=== PATIENT | male | born 1930 | race Caucasian/White ===

== ENCOUNTER 2017-02-13 12:20 | Observation (INO) | payer OTHER ==
[~2017-02-13] VITALS: Ht 170.2 cm; Wt 64.5 kg
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
--- NOTE | ~2017-02-13 | CR72 ---
[facility] A Service of [facility] RADIOLOGY TEXT RESULTS PATIENT: SHAHRZAD TOBIN LOCATION: A 240-01 : 30 UNIT #: [id number] AGE: [address]: Burak Crocker MD SEX: M ORDER DR: [id number] [facility] [address] [place], [place] [address] [id number] I MR#: [id number] Acc #: [id number] NAME: SHAHRZAD TOBIN : 1930 SEX: M STUDY DATE/TIME: 02/25/2017 13:19 UNIT: [facility] ROOM: [facility] STUDY DESCRIPTION: CR Chest Single View Portable Attending Physician: Burak Crocker M.D. Ordering Physician: Suze Perez M.D. Primary Care Physician: Primary Care Physician No MEDICAL IMAGING REPORT This report is preliminary unless electronic signature is present EXAM Chest x-ray single-view portable HISTORY Cough for 1 month with congestion. COMMENT Single frontal portable view of the chest timed 13:19 on 02/25/2017 compared to 02/13/2017. Cardiac silhouette size is normal. There is a moderate-sized hiatal hernia. There is left-sided pacer/defibrillator and a stent right upper extremity to subclavian level. There is evidence for old granulomatous disease. There is some distortion of pulmonary parenchymal architecture which is chronic. There is no acute infiltrate. There is no acute congestive failure. No pleural effusion. IMPRESSION No significant interval change in the appearance of the chest since 02/13/2017. Likely chronic lung changes but no acute infiltrate or acute congestive failure. The patient has a left-sided pacer/defibrillator, right-sided stents. Also redemonstrated is a moderate hiatal hernia. Dictated by... Tamia Barbosa M.D. THIS IS AN ELECTRONICALLY VERIFIED REPORT Tamia Barbosa M.D. at 02/26/2017 4:54 PM [facility]/s [facility] A Service of [facility] RADIOLOGY TEXT RESULTS PATIENT: SHAHRZAD TOBIN [id number] : [facility] UNIT #: [id number] AGE: [address]: Burak Crocker MD SEX: M ORDER DR: TD: 02/26/2017 06:11 JOB #: [id number] MEDICAL IMAGING REPORT Page 1 of 1 COPY
--- NOTE | ~2017-02-13 | DS ---
Unit #: [id number] #: [id number] Patient: SHAHRZAD TOBIN [id number] [address] [address] [id number] I MR#: [id number] NAME: SHAHRZAD TOBIN ROOM: 240 Age: 86 Sex: M Admission Date: 02/13/2017 : 1930 Discharge Date: 03/09/2017 Attending Physician: Burak Crocker M.D. Primary Care Physician: No Primary Care Physician DISCHARGE SUMMARY ADDENDUM REASON FOR ADMISSION Please see H and P. HOSPITAL COURSE Please see discharge summary I dictated several days prior for initial part of hospital course. Essentially the patient through hospital course began declining. Overall his shortness of breath and/or dyspnea worsened. Repeat 2D echocardiogram was performed showing a diminished ejection fraction of approximately 10%, decreased from a prior ejection fraction of 30% in January 2017. Consultation was placed at that point in time to cardiology services and secondary to patient's persistent hypotension, no further management was recommended and cardiology services recommended comfort measures only. His prognosis appeared to be poor and he was actively dying. Subsequently a phone call was placed to patient's son. All care was reviewed with him in detail. A decision was made for DNR status, as well as for Hospice consultation. Hospice saw and evaluated patient. All parties were in agreement. Patient will be [facility] for ongoing care. Overall his prognosis is poor. FINAL DISCHARGE DIAGNOSES 1. Acute on chronic systolic heart failure with ejection fraction 10%. 2. Dyspnea multifactorial. 3. End stage renal disease on hemodialysis. 4. End stage dementia. 5. Moderate to severe protein/calorie malnutrition. Dictated by... Sandra Díaz/trung TD: 03/13/2017 08:45 JOB #: [id number] Unit #: [id number] #: [id number] Patient: SHAHRZAD TOBIN DISCHARGE SUMMARY Page 1 of 1 X Burak Crocker MD X DISCHARGE SUMMARY
--- NOTE | ~2017-02-13 | EKG ---
PATIENT: STEFAN HEREDIA UNIT #: [id number] Ventricular Rate: 88 BPM Atrial Rate: 88 BPM P-R Interval: 176 ms QRS Duration: 180 ms Q-T Interval: 490 ms QTC Calculation(Bezet): 592 ms P [place]: 15 degrees Calculated R [place]: -74 degrees Calculated T [place]: 104 degrees Diagnosis Line: Atrial-sensed ventricular-paced rhythm Diagnosis Line: Biventricular pacemaker detected Diagnosis Line: Abnormal ECG Diagnosis Line: No previous ECGs available Diagnosis Line: Confirmed by FRANCISCO BENDER MD ([id number]) on 02/14/2017 Diagnosis Line: 7:38:23 PM INTERPRETING MD: YULIA THURSTON
--- NOTE | ~2017-02-13 | EKG ---
PATIENT: SHAHRZAD TOBIN UNIT #: [id number] Ventricular Rate: 95 BPM Atrial Rate: 95 BPM P-R Interval: 146 ms QRS Duration: 190 ms Q-T Interval: 416 ms QTC Calculation(Bezet): 522 ms P [place]: 76 degrees Calculated R [place]: -70 degrees Calculated T [place]: 103 degrees Diagnosis Line: Electronic ventricular pacemaker Diagnosis Line: Diagnosis Line: Confirmed by FRANCISCO BENDER MD ([id number]) on 03/08/2017 Diagnosis Line: 10:23:30 PM INTERPRETING MD: YULIA THURSTON
--- NOTE | ~2017-02-13 | FU ---
[facility] Nutrition Therapy DATE: 03/07/17 Patient: SHAHRZAD TOBIN Physician: NAUN Address: [address] [place] [address] Room/Bed: [address] [place] [address], Zip: [place] [address] Admit Date: 02/13/17 Date of : 30 Height: 5 7 Weight: 144 65.5 NUTRITION MONITORING/FOLLOW-UP: Reason: PT SEEN FOR FOLLOW-UP DX: ESRD Anthropometrics: 5'7", WT: 144# (65 KG), BMI: 22.6 -ADMIT WEIGHT: 125# (56.8 KG) Labs: CREAT: 3.0, GFR: 18.0 Meds: NOVOLOG, ZOFRAN, FERROUS GLUCONATE, LIPITOR, NACL I&O's: 370/400 Skin: DRY SKIN NOTED Assessment: CHART REVIEWED AND EVENTS NOTED. PT SEEN FOR FOLLOW-UP. PT CONSUMING BREAKFAST AT TIME OF VISIT-NOTING PT ATE ~75% OF MEAL SO FAR. PT NOTED TO HAVE A SAD, FLAT AFFECT REORTING GOOD PO INTAKE AND APPETITE, NO C/O N/V/D. PT REPORTS CONSUMING ENSURE PUDDING BID. THIS RD ENCOURAGED ADEQUATE KCAL AND PROTEIN INTAKE, PT AGREED. PT REPORTED NO DIET QUESTIONS AT THIS VISIT. PER CHART, AWAITING PLACEMENT FOR D/C. Dx: INADEQUATE PROTEIN-ENERGY INTAKE R/T DECREASED APPETITE, ADVANCED AGE, CURRENT CONDITION AEB PT REPORT ABOVE, LOW BMI/%IBW, WEIGHT LOSS NOTED PER PT.-ACTIVE Intervention: 1. CC+HH+ 2 GM NA + FLUID RESTRICTION DIET 2. ENSURE PUDDING BID Monitoring, Evaluation and Goals: 1. ORAL INTAKE; CONSUME/TOLERATE >50% OF MEALS AND SUPPLEMENTS-MET 2. WEIGHTS; PREVENT FURTHER WEIGHT LOSS-MET/IN PROGRESS 3. LABS; WNL: BUN, CREAT, PHOS-IN PROGRESS/MET Recommendations: 1. CONTINUE TO ENCOURAGE ADEQUATE PO AND SUPPLEMENT INTAKE 2. CONSIDER OBTAINING UPDATED PHOS LEVEL (LAST ONE WAS 02/13/17) RD WILL F/U PER PROTOCOL PT IS MILDLY COMPROMISED Respectfully, ANUSHA MURRAY MS, RD, LD [facility] Nutrition Therapy DATE: 03/07/17 Patient: SHAHRZAD TOBIN Physician: NAUN Address: [address] Room/Bed: [address] [place] [address], Zip: [place] [address] Admit Date: 02/13/17 Date of : 30 Height: 5 7 Weight: 144 65.5 [facility] cc: client file
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
--- NOTE | ~2017-02-13 | CO ---
Unit #: [id number] #: [id number] Patient: SHAHRZAD TOBIN [id number] [address] [place], [place] [address] [id number] I MR#: [id number] NAME: SHAHRZAD TOBIN ROOM: 240 Age: 86 Sex: M Admission Date: 02/13/2017 : 1930 Attending Physician: Burak Crocker M.D. Consultation Date: 03/02/2017 CONSULTATION REPORT REASON FOR CONSULTATION Followup. DISCUSSION Mr. Ray is an 86-year-old white male, seen in room 240, bed 1 on 03/02/2017. The patient interviewed, chart reviewed, and obtained information from nursing staff. The patient lying comfortably in bed. Able to answer question in short sentences. The patient still eating poorly. Withdrawn, isolative, flat affect, guarded, poor historian. No agitation. The patient is currently compliant with medication. No side effects from medication. On Aricept, haloperidol, Risperdal. No side effects from medication. Vital signs; temperature 97.5, pulse 90, respirations 18, blood pressure 115/54, oxygen saturation 96%. REVIEW OF SYSTEMS Complete review of systems unremarkable. MENTAL STATUS EXAMINATION General appearance, the patient dressed casually, thin built, withdrawn, isolative, poor eye contact. Attention span and concentration, poor. Speech, slow in volume and rate. Oriented in self and place. Mood and affect, labile and flat. Thought process, circumstantial. Thought content, guarded, paranoid, but denied any thoughts of harming self or others. Recent and remote memory, fair to poor. Language, fair. Fund of knowledge, fair. Insight and judgment, fair to slightly impaired. 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 ASSESSMENT/PLAN 1. Supportive psychotherapy and psychoeducation provided to the patient. 2. Educated about benefits and side effects of medication and course and prognosis of illness. 3. Advised to continue with current combination of medication and make further adjustment of medication if needed. Please feel free to call if any questions, telephone #[phone]. Dictated by... Kevin Che M.D. GAUTAM/bobbi Unit #: [id number] #: [id number] Patient: SHAHRZAD TOBIN TD: 03/03/2017 14:48 JOB #: [id number] CONSULTATION REPORT Page 1 of 1 X Kevin Che MD CONSULTATION REPORT
--- NOTE | ~2017-02-13 | CO ---
Unit #: [id number] #: [id number] Patient: SHAHRZAD TOBIN [id number] [facility] [address] [facility]. [place], [place] [address] [id number] I MR#: [id number] NAME: SHAHRZAD TOBIN ROOM: 240 Age: 86 Sex: M Admission Date: 02/13/2017 : 1930 Attending Physician: Burak Crocker M.D. Primary Care Physician: Primary Care Physician No Consultation Date: 03/06/2017 CONSULTATION REPORT REASON FOR CONSULTATION Followup. DISCUSSION Mr. Ray is an 86-year-old male, seen in room 240, bed 1, on 03/06/2017 at [facility]. The patient was lying comfortably. Answered question in short sentences. Confused, guarded, poor memory. Vital signs; temperature 97.9, pulse 85, respirations 16, blood pressure 116/42, oxygen saturation 94%. The patient has poor intake, withdrawn, guarded, paranoid. medical social worker is currently looking for placement such as [employer]. REVIEW OF SYSTEMS Complete review of systems is unremarkable. MENTAL STATUS EXAMINATION General appearance, the patient dressed casually, thin built. Attention span and concentration, poor. Speech, slow in volume with long pauses. Oriented in self and place. Mood and affect, flat. Thought process, circumstantial. Thought content, guarded, paranoid, but denied any thoughts of harming self or others. Recent and remote memory, fair to slightly impaired. Language, fair. Fund of knowledge, fair. Insight and judgment, fair to slightly impaired. 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 ASSESSMENT/PLAN 1. Supportive psychotherapy and psychoeducation provided to the patient. 2. Educated about benefits and side effects of medication and course and prognosis of illness. 3. Advised to continue with current medication and therapeutic protocol. If needed, consider further adjustment of medication. Please feel free to call if any questions, telephone #[phone]. Dictated by... Kevin Che M.D. GAUTAM/bobbi TD: 03/06/2017 19:22 JOB #: [id number] Unit #: [id number] #: [id number] Patient: MAHADSHAHRZAD CONSULTATION REPORT Page 1 of 1 X Kevin Che MD CONSULTATION REPORT
--- NOTE | ~2017-02-13 | CO ---
Unit #: [id number] #: [id number] Patient: SHAHRZAD TOBIN [id number] [address] [address] [id number] I MR#: [id number] NAME: SHAHRZAD TOBIN ROOM: 240 Age: 86 Sex: M Admission Date: 02/13/2017 : 1930 Attending Physician: Burak Crocker M.D. 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 ASSESSMENT/PLAN 1. Supportive psychotherapy and psychoeducation provided to the patient. 2. Educated about benefits and side effects of medication and course and prognosis of illness. 3. Advised to continue with current combination of medication. If needed, consider further adjustment of medication. We will continue to follow and make further adjustment of medication if needed. The patient's care companion is currently working on power of commercial real estate attorney, guardianship, and appropriate placement for the patient. Dictated by... Sandra Presley/bobbi TD: 03/01/2017 20:14 JOB #: [id number] CONSULTATION REPORT Page 1 of 1 X Kevin Che MD X CONSULTATION REPORT
--- NOTE | ~2017-02-13 | CO ---
Unit #: [id number] #: [id number] Patient: SHAHRZAD TOBIN [id number] [facility] [address] [facility]. [place], [place] [address] [id number] I MR#: [id number] NAME: SHAHRZAD TOBIN ROOM: 240 Age: 86 Sex: M Admission Date: 02/13/2017 : 1930 Attending Physician: Burak Crocker M.D. Primary Care Physician: Primary Care Physician No Consultation Date: 03/04/2017 CONSULTATION REPORT REASON FOR CONSULTATION Followup. DISCUSSION Mr. Ray is an 86-year-old male, seen in room 240, bed 1 on 03/04/2017 at [facility]. The patient compliant with medication, maintaining safe behavior, no aggression. Sad, dysphoric, flat affect, but denied any thoughts of harming self or others. The patient did not show any agitation, slept good, tolerating medication fairly well. The patient is a poor historian. Denied any thoughts of harming self or others. The patient's vital signs; temperature 97.7, pulse 91, respiratory rate 16, blood pressure 102/50, and oxygen saturation 99%. REVIEW OF SYSTEMS Complete review of system is unremarkable. MENTAL STATUS EXAMINATION General appearance; the patient dressed casually, lying comfortably in bed. Attention span and concentration, poor. Speech, slow in volume and rate with long pauses. Oriented in place and self. Mood and affect; sad, dysphoric, flat. Thought process, circumstantial. Thought content, guarded and paranoid, but denied any thoughts of harming self or others. Recent and remote memory, fair to poor. Language, fair. Fund of knowledge, fair. Insight and judgment, fair to slightly impaired. 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 ASSESSMENT AND PLAN 1. Supportive psychotherapy and psychoeducation provided to the patient. 2. Educated about benefits and side effects of medication and course and prognosis of illness. 3. Advised to continue with current combination of medication. If needed, consider further adjustment of medication. The patient is currently on Risperdal and haloperidol combination. If needed, consider cutting back on the medication. Please feel free to call if any questions, telephone #[phone]. Dictated by... Sandra Presley/bobbi Unit #: [id number] #: [id number] Patient: SHAHRZAD TOBIN TD: 03/04/2017 23:56 JOB #: [id number] CONSULTATION REPORT Page 1 of 1 X Kevin Che MD X CONSULTATION REPORT
--- NOTE | ~2017-02-13 | CO ---
Unit #: [id number] #: [id number] Patient: SHAHRZAD TOBIN [id number] [facility] [address] [facility]. [place], [place] [address] [id number] I MR#: [id number] NAME: SHAHRZAD TOBIN ROOM: 551 Age: 86 Sex: M Admission Date: 02/13/2017 : 1930 Attending Physician: Jonatan Manning M.D. Primary Care Physician: No Primary Care Physician Requesting Physician: Jonatan Manning M.D. Consultation Date: 02/14/2017 CONSULTATION REPORT REASON FOR CONSULTATION End stage renal disease. HISTORY OF PRESENT ILLNESS This patient is an 86-year-old white gentleman with a history of multiple problems including history of chronic atrial fibrillation, CHF, COPD, dementia, end stage renal disease, coronary artery disease, obstructive sleep apnea who was admitted to [facility] after missing a dialysis session, complaining of shortness of breath, cough and sputum production. The patient underwent dialysis this morning, already feeling a little bit better. Denied any fever or chills. Denied nausea or vomiting. Patient has congestive heart failure with EF of around 20% to 25%. But noncompliant with the low sodium diet, fluid gain, and dialysis. PAST MEDICAL HISTORY As per history of presenting illness. FAMILY HISTORY Noncontributory. MEDICATIONS Atorvastatin 10 mg daily; donepezil 10 mg daily; Lasix 40 mg daily; Imdur 60 mg daily; ProAmatine 5 mg daily; Requip 1 mg at night. REVIEW OF SYSTEMS As per history of presenting illness. PHYSICAL EXAMINATION GENERAL: The patient is having some cough but in no acute distress. VITAL SIGNS: Temperature 97.6, pulse 85, blood pressure 119/57. HEENT: Unremarkable. Mild pallor. There is no oral exudates. NECK: Supple. There is positive JVD, no bruit, no thyromegaly. No cervical lymphadenopathy. CHEST: Shows bibasilar crackle. Bilateral wheezing. CARDIOVASCULAR: Regular rate and rhythm. There is no rub. Tachycardic. ABDOMEN: Soft, nontender, nondistended. Positive bowel sounds. EXTREMITIES: Positive peripheral edema. DIAGNOSTIC STUDIES LABORATORY DATA: Sodium 142, potassium 4.1, chloride 107, bicarb 21, BUN 81, creatinine 9.8, glucose 113. ASSESSMENT Unit #: [id number] #: [id number] Patient: SHAHRZAD TOBIN 1. End stage renal disease. Continue hemodialysis, Sunday, Sunday and Sunday, COPD exacerbation. Continue the medication support. 2. CHF optimized biventricular function and the patient needs to be compliant with the free water and salt restriction and dialysis scheduled. Thank you very much for the opportunity to share care of this patient. Will do another dialysis again in the morning and after that from renal point patient can be discharged. Dictated by... Ottoniel Luciano M.D. LEATHA/trung TD: 02/15/2017 05:39 JOB #: [id number] CONSULTATION REPORT Page 1 of 1 X Sebas Luciano MD X CONSULTATION REPORT
--- NOTE | ~2017-02-13 | CR63 ---
[facility] A Service of [facility] & [facility] RADIOLOGY TEXT RESULTS PATIENT: SHAHRZAD TOBIN LOCATION: C2A 240-01 : 30 UNIT #: [id number] AGE: [address]: Burak Crocker MD SEX: M ORDER DR: [id number] [facility] [address] [facility]. [place], [place] [address] [id number] I MR#: [id number] Acc #: [id number] NAME: SHAHRZAD TOBIN : 1930 SEX: M STUDY DATE/TIME: 03/05/2017 16:16 UNIT: [facility] ROOM: 240 STUDY DESCRIPTION: CR Chest 2 View Attending Physician: Burak Crocker M.D. Ordering Physician: Burak Crocker M.D. Primary Care Physician: No Primary Care Physician MEDICAL IMAGING REPORT This report is preliminary unless electronic signature is present EXAM Chest, 2 views, dated 03/05/17. COMPARISON Single view of chest dated 02/25/17. HISTORY Cough, congestion, shortness of air for 3 weeks. History of prostate cancer. FINDINGS Two views of the chest were obtained. Pacemaker is in the left upper lateral chest with stable positioning of leads. There is a vascular stent noted in the right side extending from the region of the right subclavian to the axillary. Correlate with history. Right shoulder osteoarthritic changes are seen. There is no obvious acute cardiopulmonary disease. Borderline sized heart. There is mild diffuse bony osteopenia. Dictated by... Christine Joshua M.D. THIS IS AN ELECTRONICALLY VERIFIED REPORT Christine Joshua M.D. at 03/06/2017 11:42 AM CPR/pc TD: 03/06/2017 09:29 JOB #: [id number] MEDICAL IMAGING REPORT Page 1 of 1 COPY
--- NOTE | ~2017-02-13 | CR72 ---
[facility] A Service of [facility] RADIOLOGY TEXT RESULTS PATIENT: JONATAN HEREDIA LOCATION: [facility] 5501 : 30 UNIT #: [id number] AGE: [address]: Jonatan Manning MD SEX: M ORDER DR: [id number] [facility] [address] [facility]. [place], [place] [address] [id number] MR#: [id number] Acc #: [id number] NAME: JONATAN HEREDIA : 1930 SEX: M STUDY DATE/TIME: 02/13/2017 13:13 UNIT: KIERA ROOM: STUDY DESCRIPTION: CR Chest Single View Portable Attending Physician: Mikhail Velazquez M.D. Ordering Physician: Mikhail Velazquez M.D. Primary Care Physician: Primary Care Physician No MEDICAL IMAGING REPORT This report is preliminary unless electronic signature is present EXAM Chest portable, 02/13/2017 13:13 hours HISTORY Shortness of air today, history of prostate cancer, congestive heart failure, diabetes and pacemaker. COMPARISON 12/07/2015 FINDINGS Portable upright chest demonstrates mild cardiomegaly with stable multilevel pacer device. There is a vascular stent extending from the SVC region to the right arm, new from the prior study. The lungs are clear. There are no effusions. IMPRESSION 1. Stable mild cardiomegaly with multilevel pacer device unchanged. 2. Vascular stent from the right arm through the subclavian vein towards the SVC is new. 3. The lungs are clear and there are no effusions. Hiatal hernia seen. Dictated by... Myrtle Chow M.D. THIS IS AN ELECTRONICALLY VERIFIED REPORT Myrtle Chow M.D. at 02/14/2017 9:32 AM Bert TD: 02/13/2017 15:43 JOB #: [id number] MEDICAL IMAGING REPORT [facility] A Service of [facility] & [facility] RADIOLOGY TEXT RESULTS PATIENT: JONATAN HEREDIA LOCATION: [facility] 5507-16 : 30 UNIT #: [id number] AGE: [address]: Jonatan Manning MD SEX: M ORDER DR: Page 1 of 1 COPY
--- NOTE | ~2017-02-13 | FU ---
[facility] Nutrition Therapy DATE: 03/01/17 Patient: SHAHRZAD TOBIN Physician: NAUN Address: [address] [place] [address] Room/Bed: [address] [place] [address], Zip: [place] [address] Admit Date: 02/13/17 Date of : 30 Height: 5 7 Weight: 138 63 NUTRITION MONITORING/FOLLOW-UP: Reason: PT SEEN FOR FOLLOW-UP DX: ESRD Anthropometrics: 5'7", WT: 138# (62.7 KG), BMI: 21.6 -ADMIT WEIGHT: 125# (56.8 KG) Labs: BUN: 44, CREAT: 5.4, PHOS: 5.8 (02/13/17), GFR: 8.8 Meds: NOVOLOG, FUROSEMIDE, ZOFRAN, FERROUS GLUCONATE, LIPITOR, NACL I&O's: 360/1 Skin: NO KNOWN SKIN ISSUES; DRY SKIN Estimated Nutrition Needs: INCREASED NEEDS 2' PMH, DECREASED PO INTAKE AND WEIGHT LOSS NOTED IN ASSESSMENT ON 02/23/17 Assessment: CHART REVIEWED AND EVENTS NOTED. PT SEEN FOR FOLLOW-UP. PT REPORTS FAIR PO INTAKE AND APPETITE, NOTING NO C/O N/V/D. PT REPORTS CONSUMING ENSURE PUDDING BID. PT HAD BREAKFAST TRAY AT BEDSIDE THIS AM AT TIME OF VISIT (HAS NOT BEEN TOUCHED), PT REPORTS "JUST WAKING UP". RN ADDS THAT PT IS NOT A "MORNING PERSON" BUT WAKES DAY GOES ON, NOTES TAKING HIS TIME CONSUMING MEALS. RN REPORTS PT IS LETHARGIC D/T HD. THIS RD ENCOURAGED ADEQUATE KCAL AND PROTEIN INTAKE, PT AGREED. PT REPORTED NO DIET QUESTIONS AT THIS TIME. PER CHART, AWAITING PLACEMENT FOR D/C. RD TO CONTINUE TO FOLLOW. Dx: INADEQUTAE PROTEIN-ENERGY INTAKE R/T DECREASED APPETITE, ADVANCED AGE, CURRENT CONDITION AEB PT REPORT ABOVE, LOW BMI/%IBW, WEIGHT LOSS NOTED PER PT.-ACTIVE Intervention: 1. CC+HH + 2 GM NA + 1800 ML FLUID RESTRICTION DIET 2. [place] ENSURE PUDDING BID Monitoring, Evaluation and Goals: 1. ORAL INTAKE; CONSUME/TOLERATE >50% OF MEALS-MET/IN PROGRESS 2. WEIGHTS; PREVENT FURTHER WEIGHT LOSS-MET 3. LABS; WNL: BUN, CREAT, PHOS-IN PROGRESS MONITOR: -PO INTAKE/APPETITE -WEIGHTS -SUPPLEMENT INTAKE [facility] Therapy DATE: 03/01/17 Patient: SHAHRZAD TOBIN Physician: NAUN Address: [address] [place] [address] Room/Bed: [address] [place] [address], Zip: [place] [address] Admit Date: 02/13/17 Date of : 30 Height: 5 7 Weight: 138 63 Recommendations: 1. APPRECIATE FAMILY AND STAFF TO CONTINUE ENCOURAGING ADEQUATE PO AND SUPPLEMENT INTAKE. PROVIDE ASSISTANCE W/ORDERING MEALS NEEDED 2. IF PO INTAKE <50%, RECOMMEND TO LIBERALIZE DIET TO 2 GM NA 3. PLEASE OBTAIN UPDATED PHOS LEVEL (PHOS WAS ELEVATED ON 02/13/17). CONTINUE TO MONITOR LYTES RD WILL F/U PER PROTOCOL PT IS MILD/MODERATELY COMPROMISED Respectfully, ANUSHA MURRAY MS, RD, LD [facility] cc: client file
--- NOTE | ~2017-02-13 | CO ---
Unit #: [id number] #: [id number] Patient: SHAHRZAD TOBIN [id number] [facility] [address] [facility]. [place], [place] [address] [id number] I MR#: [id number] NAME: SHAHRZAD TOBIN ROOM: 240 Age: 86 Sex: M Admission Date: 02/13/2017 : 1930 Attending Physician: Burak Crocker M.D. Primary Care Physician: No Primary Care Physician Consultation Date: 03/07/2017 CONSULTATION REPORT REASON FOR CONSULTATION Congestive heart failure, (1) of prognosis. HISTORY OF PRESENT ILLNESS This is an 86-year-old white male previously known to Dr. Milian with cardiology. The patient is known to have end stage renal disease on hemodialysis, hypertension, hyperlipidemia, diabetes mellitus type 2, and paroxysmal atrial fibrillation not on anticoagulation due to documented history of persistent hematuria. Patient is known to have chronic systolic congestive heart failure with a previous ejection fraction of 20% to 25% from [facility]. He has a history of CAD with PCI and stents and prior AICD. Details of coronary artery disease are unknown. Further records from [facility] have been requested and are pending. The patient presented to the hospital per APS recommendations due to bedbugs and missed hemodialysis. He has also had persistent shortness of breath and a productive cough. There are no reports of fever. He complains of generalized body aches, as well as chest pain. He states the pain is with rest. There (2) but the patient is fairly sedentary. Pain goes across the chest. There is no radiation of the neck, jaw, shoulder or arms. There are no associated symptoms of nausea, vomiting, or diaphoresis. There are no reports of dizziness, palpitations or syncope. Denies significant swelling. In the emergency department his blood pressure was 131/61 and heart rate 85. Chest x-ray revealed mild cardiomegaly. Labs revealed a BNP of 1,884. Creatinine was 9.8 and BUN 81. He was admitted to [facility] for end stage renal disease with missed dialysis, as well as congestive heart failure. Nephrology was consulted for dialysis. The patient's blood pressure was low and his heart failure medications were stopped. He ultimately was started on ProAmatine and Florinef to maintain his blood pressure due to hypotension. 2D echocardiogram was obtained on 03/04/2017 and revealed a worsening ejection fraction of 10% with moderate to severe tricuspid regurgitation and RVSP of 46 mmHg. Cardiology was consulted for opinion of prognosis and for congestive heart failure. PAST MEDICAL HISTORY 1. Coronary artery disease with history of PCI and stents. Records pending. 2. 2D echocardiogram on 02/06/2017 at [facility] revealed pacemaker lead visualized in the right atrium. Technically difficult study. Ejection fraction calculated at 30% to 35%. Borderline criteria for diastolic dysfunction. Moderate aortic leaflet calcification. Unit #: [id number] #: [id number] Patient: SHAHRZAD TOBIN Moderate sclerosis of aortic valve with evidence of mild to moderate aortic stenosis. Moderate to severe tricuspid regurgitation. RVSP 45 mmHg. 3. Per his ejection fraction 20% to 25% prior to study in 01/2017. 4. Chronic systolic congestive heart failure. 5. History of AICD. 6. Peripheral artery disease with history of abdominal aortic aneurysm and repair with a vascular stent. 7. Paroxysmal atrial fibrillation on anticoagulation secondary to persistent hematuria. 8. Hypertension. 9. Hyperlipidemia. 10. Diabetes mellitus type 2. 11. End stage renal disease on hemodialysis. 12. Obstructive sleep apnea. 13. Depression. 14. Dementia. 15. Prostate cancer. 16. Reformed tobacco abuse. PAST SURGICAL HISTORY 1. Abdominal aortic aneurysm repair. 2. Appendectomy. 3. AICD. 4. Cholecystectomy. 5. Colonoscopy. 6. Cardiac catheterization, PCI and stent. Details unavailable. 7. Eyes surgery. 8. Fem-fem bypass. 9. Coiling of left external iliac and common iliac arteries. HOME MEDICATIONS Atorvastatin 10 mg p.o. daily; iron 325 mg p.o. daily; Lasix 40 mg p.o. daily; Imdur 60 mg p.o. daily; midodrine 5 mg p.o. b.i.d.; Requip 1 tablet p.o. q.h.s.; donepezil 10 mg p.o. q.h.s. ALLERGIES Penicillin. SOCIAL HISTORY The patient was staying in a private residence. APS is involved due to reports of people coming in an out of the home, as well as suspected involvement of drugs. The patient reported is a reformed smoker but this is unclear. There are no reports of alcohol or illicit drug use. FAMILY HISTORY Noncontributory. REVIEW OF SYSTEMS Ten point review of systems negative except for details as above in HPI. PHYSICAL EXAMINATION VITAL SIGNS: Temperature 97.5, pulse 94, blood pressure 127/62. CONSTITUTIONAL: This is an 86-year-old white male who is ill appearing. SKIN: Warm and dry. NECK: Supple. No jugular venous distention. No hepatojugular reflux. Normal carotid upstrokes. No carotid bruits auscultated. HEART: S1 and S2. Regular rate and rhythm. No murmurs, rubs o gallops. Unit #: [id number] #: [id number] Patient: SHAHRZAD TOBIN LUNGS: Bilateral breath sounds have good air entry throughout all lung roberson. Respirations even and unlabored. No rales, rhonchi or wheezes. ABDOMEN: Soft, nontender, nondistended. Positive bowel sounds auscultated x4 quadrants. No ascites noted. EXTREMITIES: Bilateral extremities have trace pretibial pitting edema. DP and PT pulses 2+. Capillary refill after three seconds. DIAGNOSTIC STUDIES LABORATORY STUDIES: White blood cell count 4.9, hemoglobin 10.1, hematocrit 30.1, platelets 84, sodium 136, potassium 3.5, chloride 95, CO2 29, BUN 18, creatinine 3.0, glucose 95. Troponin 0.09, 0.08, and 0.06. BNP 1,675. CARDIOVASCULAR: Electrocardiogram reveals a paced rhythm. IMAGING STUDIES: Chest x-ray on 03/05/2017 revealed pacemaker in the left upper lateral chest with stable position in leads. Vascular stent noted in the right side, extending from the region of the right subclavian to the axillary. Right should osteoarthritis. Mild diffuse bony osteopenia. IMPRESSION 1. End stage renal disease with missed dialysis treatments as an outpatient. 2. Acute on chronic systolic congestive heart failure. 3. Severe cardiomyopathy with an ejection fraction of 10%. 4. Mild to moderate aortic stenosis and mitral regurgitation. 5. Moderate to severe tricuspid regurgitation. Moderate pulmonary hypertension. 6. Chest pain. 7. History of coronary artery disease with percutaneous coronary intervention and stents at [facility]. Details unavailable. 8. Hypotension. 9. History of paroxysmal atrial fibrillation. Paced rhythm. 10. Dementia. 11. Recent bedbugs. PLANS 1. Patient presented to the hospital with missed dialysis and bedbugs. He was admitted for further observation. Nephrology was consulted. 2. Cardiology was consulted for congestive heart failure and severe cardiomyopathy with an ejection fraction of 10%. 3. The patient is unable to tolerate oral medications due to hypotension. 4. He is not a candidate for any invasive procedures. 5. His prognosis is poor and he could be considered for Hospice. A call has been placed to the son but there was no answer. Thank you for consulting us. Dictated by... Eli Mehta APRN for Unit #: [id number] #: [id number] Patient: SHAHRZAD TOBIN Sandra Reyes/trung TD: 03/09/2017 09:15 JOB #: [id number] CONSULTATION REPORT Page 1 of 1 X X CONSULTATION REPORT
--- NOTE | ~2017-02-13 | CO ---
Unit #: [id number] #: [id number] Patient: SHAHRZAD TOBIN [id number] [address] [address] [id number] I MR#: [id number] NAME: SHAHRZAD TOBIN ROOM: 240 Age: 86 Sex: M Admission Date: 02/13/2017 : 1930 Attending Physician: Burak Crocker M.D. Primary Care Physician: Primary Care Physician No Consultation Date: 03/05/2017 CONSULTATION REPORT REASON FOR CONSULTATION Followup. DISCUSSION Mr. Ray is an 86-year-old male, seen in room 240, bed 1 on 03/05/2017. The patient dressed casually in hospital gown, seemed anxious and nervous. The patient unable to give any coherent information, problem with memory, some confusion, but no agitation. Tolerating medication fairly well. The patient's vital signs; temperature 98.0, pulse 94, respirations 18, blood pressure 113/59, and oxygen saturation 98%. REVIEW OF SYSTEMS Complete review of system is unremarkable. MENTAL STATUS EXAMINATION General appearance, the patient dressed in hospital gown, thin built. Attention span and concentration, poor. Speech, slow in volume. Oriented in place and self. Mood and affect, labile. Thought process, circumstantial. Thought content, guarded, paranoid, but denied any thoughts of harming self or others. Recent and remote memory, fair to slightly impaired. Language, fair. Fund of knowledge, fair. Insight and judgment, fair to slightly impaired. DIAGNOSES Psychiatric: Major neurocognitive disorder secondary to Alzheimer disease with behavioral disturbances, F02.81. ASSESSMENT AND PLAN 1. Supportive psychotherapy and psychoeducation provided to the patient. 2. Educated about benefits and side effects of medication and course and prognosis of illness. 3. Advised to continue with current combination of medication. If needed, consider further adjustment of medication. Please feel free to call if any question telephone, #[phone]. Dictated by... Kevin Che M.D. GAUTAM/bobbi TD: 03/05/2017 18:44 JOB #: [id number] Unit #: [id number] #: [id number] Patient: SHAHRZAD TOBIN CONSULTATION REPORT Page 1 of 1 X Kevin Che MD CONSULTATION REPORT
--- NOTE | ~2017-02-13 | HP ---
Unit #: [id number] #: [id number] Patient: STEFAN HEREDIA [id number] [facility] [address] [facility]. [place], [place] [address] [id number] MR#: [id number] NAME: STEFAN HEREDIA ROOM: 31758 Age: 86 Sex: M Admission Date: 02/13/2017 : 1930 Attending Physician: Karrie Tate M.D. Primary Care Physician: No Primary Care Physician HISTORY AND PHYSICAL CHIEF COMPLAINT Needs dialysis, adult protective services. HISTORY OF PRESENT ILLNESS The patient is an 86-year-old male with past medical history of multiple medical problems including end-stage renal disease on dialysis, CHF, hypertension, hyperlipidemia, coronary artery disease, paroxysmal atrial fibrillation, obstructive sleep apnea, depression, dementia, prostate cancer, peripheral vascular disease, diabetes, who presented to the emergency department for evaluation of the above. History is obtained from chart review and discussion with the ER staff as well as from the patient and his son, Mo Heredia, who is at bedside. The patient was apparently hospitalized at [facility] February 04-2016 for hyperkalemia. He was discharged home with home health. The patient states that he has not been taking his medication since returning home. The patient has had persistent shortness of breath and intermittently productive cough. He denies any fever. No chest pain. He states that his appetite has been good but that he has not had much food in his home. He denies any vomiting or diarrhea. No swelling of his legs. His last dialysis was when he was hospitalized. The patient's son reports that people are "coming in and out of his home", people allegedly involved in drugs and just being out of jail, per the patient's son. The patient's son states that these people are "taking advantage" of the patient. Adult protective services is involved. Upon arrival in the emergency department, the patient was noted to have bedbugs. Initial pulse and blood pressure were 85 and 131/61 respectively. Oxygen saturation 96% on room air. Chest x-ray shows mild cardiomegaly. Laboratory notable for BNP of 1884, BUN and creatinine are 81 and 9.8 respectively. He is being admitted to [facility] for evaluation and further treatment. PAST MEDICAL HISTORY 1. Admission to [facility] February 04-2016 for hyperkalemia. 2. End-stage renal disease on dialysis Sunday, Sunday, Sunday. Followed by Dr. Nunez. 3. Congestive heart failure with an ejection fraction of 20% to 25% per records from [facility]. 4. Hypertension. Unit #: [id number] #: [id number] Patient: STEFAN HEREDIA 5. Hyperlipidemia. 6. Coronary artery disease, status post stent placement. 7. Paroxysmal atrial fibrillation, status post pacemaker placement. 8. Obstructive sleep apnea. 9. Depression. 10. Dementia. 11. Prostate cancer. 12. Peripheral vascular disease, status post aortic stent placement, fem-fem bypass, coiling of left external iliac and common iliac arteries. 13. Diabetes with peripheral neuropathy. 14. Dementia. PAST SURGICAL HISTORY 1. Abdominal aortic aneurysm repair. 2. Appendectomy. 3. Defibrillator pacemaker placement. 4. Cholecystectomy. 5. Colonoscopy. 6. Stent placement. 7. Eye surgery. 8. Aortic stent placement. 9. Fem-fem bypass. 10. Coiling of left external iliac and common iliac arteries. SOCIAL HISTORY The patient lives alone. However, per the patient's son, multiple people are coming in and out of the home. The patient is a smoker. He typically walks without assistance. Adult protective services is involved. ALLERGIES Penicillin. HOME MEDICATIONS 1. Atorvastatin 10 mg daily. 2. Donepezil 10 mg q.h.s. 3. Iron 325 mg daily. 4. Lasix 40 mg daily. 5. Imdur 60 mg daily. 6. Midodrine 5 mg b.i.d. 7. Requip q.h.s. REVIEW OF SYSTEMS The patient's electricity had reportedly been turned off upon the patient's return from the hospital. Also of note, the patient's POA is a friend, Zee Rivas. Apparently the patient's son, Mo Heredia, was the POA but about four months ago the patient changed the POA to his friend, Zee Rivas. DIAGNOSTIC STUDIES CARDIOVASCULAR: EKG shows paced rhythm with a rate of 88 beats per minute. IMAGING: Chest x-ray shows mild cardiomegaly. LABORATORY: Comprehensive metabolic panel notable for CO2 of 21, glucose 113, BUN and creatinine 81 and 9.8 respectively, calcium is 8.1, magnesium is 2.4. Complete blood count notable for hemoglobin and hematocrit of 9 Unit #: [id number] #: [id number] Patient: STEFAN HEREDIA and 26.5 respectively, MCV is 101, RDW 15.4. BNP is 1884. Urinalysis notable for trace leukocyte esterase, 2+ protein, 100 glucose, 1+ blood with 2 to 5 red blood cells, 2 to 5 white blood cells. PHYSICAL EXAMINATION GENERAL: The patient is a male who is awake and alert, in no acute distress. HEENT: The head is atraumatic. Mucous membranes are moist. NECK: Neck is supple. Trachea is midline. CARDIOVASCULAR: Irregular. LUNGS: Demonstrate a few scattered crackles at the bases. Breathing is not labored with conversation. ABDOMEN: Abdomen is soft, nontender, with bowel sounds present in all four quadrants. EXTREMITIES: Nontender, with no pedal edema. NEUROLOGIC: The patient is awake and alert. He is oriented x3. He follows commands. PSYCHIATRIC: Mood and affect are normal. The patient is cooperative. SKIN: Skin of examined areas is warm and dry. The patient did have bedbugs, per my discussion with ER staff. ASSESMENT The patient is an 86-year-old male with: 1. End-stage renal disease on dialysis Sunday, Sunday, Sunday. The patient's last dialysis was possibly February 07, 2017. He is followed by Dr. Nunez. 2. Congestive heart failure with ejection fraction of 20% to 25% per [facility] records. 3. Hypertension. 4. Hyperlipidemia. 5. Coronary artery disease, status post stent placement. 6. Paroxysmal atrial fibrillation. 7. Obstructive sleep apnea. 8. Depression. 9. Dementia. 10. Prostate cancer. 11. Peripheral vascular disease, status post fem-fem bypass and coiling of left external iliac and common iliac arteries. 12. Diabetes with neuropathy. 13. Anemia. The patient's hemoglobin is 9 with no baseline for comparison. 14. Bedbug infestation. 15. Tobacco abuse. PLAN 1. Admit to intermediate level for observation. 2. Elr-ynqx-lryozh, 5042-aF-vjkkt-restricted, heart-healthy consistent-carb diet if passes bedside swallow. 3. Bedrest. 4. Fall precautions. 5. Consult Dr. Nunez regarding end-stage renal disease and dialysis needs. 6. Strict Is and Os. 7. Daily weights. 8. Serial cardiac enzymes. 9. Supplemental oxygen. 10. PT/OT to evaluate and treat. 11. administrative assistant office managercorporate operations compliance manager consult regarding home safety. Unit #: [id number] #: [id number] Patient: STEFAN HEREDIA 12. Check phosphorus level. 13. Hemoglobin A1C. 14. Low dose sliding scale insulin with Accu-Cheks. 15. P.r.n. Tylenol. 16. Iron studies, B12 and folate. 17. Hemoccult stool. 18. Repeat labs in the morning. 19. Additional workup and consultants based on above. Dictated by Sandra Garza/luís TD: 02/13/2017 18:19 JOB #: [id number] HISTORY AND PHYSICAL Page 1 of 1 X Karrie Tate MD HISTORY AND PHYSICAL
--- NOTE | ~2017-02-13 | A ---
[facility] Nutrition Therapy DATE: 02/23/17 Patient: SHAHRZAD TOBIN Physician: NAUN Address: [address] [place] [address] Room/Bed: [address] [place] [address], Zip: [place] [address] Admit Date: 02/13/17 Date of : 30 Height: 5 7 Weight: 139 63.5 NUTRITIONAL ASSESSMENT: REASON: LOS ASSESSMENT PT IS 86 Y.O. MALE ADMITTED FOR ESRD PMH: ESRD ON HD, DEMENTIA, HTN, HLD, CAD, AFIB, RIZWANA, COPD, PROSTATE CARCINOMA, CHF, DM, PVD Anthropometrics: 5'7", WT: 125# (PER PT) (56.8 KG), BMI: 19.6, 84%IBW Labs: BUN: 28, CREAT: 5.9, PHOS: 5.8 (02/13/17), A1c: 6.3, GFR: 7.9 Meds: FUROSEMIDE, ZOFRAN, FERROUS GLUCONATE, LIPITOR, NOVOLOG, NACL I/O & Bowel function: 660/1 Skin Integrity: DRY SKIN NOTED ALL OVER BODY Estimated Nutrition Needs: INCREASED NEEDS 2' PMH, DECREASED PO INTAKE NOTED, WEIGHT LOSS NOTED PER PT Assessment: CHART REVIEWED AND EVENTS NOTED. PT SEEN FOR LENGTH OF STAY ASSESSMENT (10 DAYS). PT SITTING IN CHAIR AT BEDSIDE EATING LUNCH AT TIME OF VISIT REPORTING APPETITE IMPROVING, NOTING HAVING FAIR PO INTAKE AND APPETITE. PT ADDS "I AM EATING MORE AT HOSPITAL THAN AT HOME". PT REPORTS WEIGHT LOSS BUT UNABLE TO KNOWN AMOUNT AND TIME FRAME. THIS RD ENCOURAGED ADEQUATE KCAL AND PROTEIN INTAKE, PT AGREED TO ENSURE PUDDING BID, RD WILL ORDER. PT REPORTED NO DIET QUESTIONS AT THIS TIME. Dx: INADEQUATE PROTEIN-ENERGY INTAKE R/T DECREASED APPETITE, ADVANCED AGE, CURRENT CONDITION AEB PT REPORT ABOVE, LOW BMI/%IBW, WEIGHT LOSS NOTED PER PT. Intervention: 1. CC+HH+2 GM NA + 1800 ML FLUID RESTRICTION DIET 2. ENSURE PUDDING BID Monitoring, Evaluation and Goals: 1. ORAL INTAKE; CONSUME/TOLERATE >50% OF MEALS AND SUPPLEMENTS 2. WEIGHTS; PREVENT FURTHER WEIGHT LOSS 3. LABS; WNL: BUN, CREAT, PHOS MONITOR: -PO INTAKE/APPETITE -WEIGHTS [facility] Nutrition Therapy DATE: 02/23/17 Patient: SHAHRZAD TOBIN Physician: NAUN Address: [address] [place] [address] Room/Bed: [address] [place] [address], Zip: [place] [address] Admit Date: 02/13/17 Date of : 30 Height: 5 7 Weight: 139 63.5 -SUPPLEMENT INTAKE Recommendations: 1. PLEASE ORDER [place] ENSURE PUDDING BID W/MEALS FOR ADDITIONAL PROTEIN AND KCAL 2. APPRECIATE FAMILY AND STAFF TO ENCOURAGE ADEQUATE PO INTAKE. PT TO REQUIRE ADDITIONAL KCAL AND PROTEIN NEEDS. -IF PO INTAKE LESS THAN 50%, RECOMMEND TO LIBERALIZE DIET TO [address] WILL F/U PER PROTOCOL PT IS MILD/MODERATELY COMPROMISED Respectfully, ANUSHA MURRAY MS, RD, LD [employer] [facility] cc: client file
[2017-02-13 13:39] LABS: BASOPHIL% 0.8 % (0-2.5); EOSINOPHIL# 0.1 X10e3 (0-0.7); EOSINOPHIL% 2.8 % (0.0-7.0); HEMATOCRIT 26.5 % (38.0-50.0); LYMPHOCYTE# 0.9 X10e3 (1.0-3.5); LYMPHOCYTE% 17.3 % (17.0-45.0); MEAN CORPUSCULAR HEMOGLOBIN 34.3 PG (28-34); MEAN PLATELET VOLUME 7.3 FL (6.5-11.5); MONOCYTE# 0.4 X10e3 (0-1.0); MONOCYTE% 6.9 % (3.0-12.0); NEUTROPHIL# 3.9 X10e3 (1.5-7.1); NEUTROPHIL% 72.2 % (40-75); PLATELET COUNT 162 X10e3 (140-420); RED BLOOD COUNT 2.63 X10e (3.90-5.60); RED CELL DISTRIBUTION WIDTH 15.4 % (11.0-15.5); WHITE BLOOD COUNT 5.4 X10e3 (4.0-10.5)
[2017-02-13 13:48] LABS: DIFF IND NO
[2017-02-13 14:02] LABS: ALBUMIN SERUM 4.3 g/dL (3.5-5.0); BILIRUBIN,TOTAL 0.4 mg/dL (0.2-2.0); BUN/CREATININE RATIO 8.26; CALCIUM SERUM 8.1 mg/dL (8.4-10.2); CREATININE SERUM 9.8 mg/dL (0.6-1.4); GLOM FILT RATE Estimated 4.3 mL/min (>60); MAGNESIUM 2.4 mg/dL (1.6-3.0); POTASSIUM 4.1 mmol/L (3.5-5.1); PROTEIN TOTAL SERUM 7.4 g/dL (6.0-8.3)
[2017-02-13 16:11] LABS: URINE SOURCE CLEAN CATCH
[2017-02-13] MEDS ORDERED: ATORVASTATIN CA10 MG PO (16:11)
[2017-02-13] MEDS ORDERED: DONEPEZIL HCL10 MG PO (16:11)
[2017-02-13] MEDS ORDERED: IRON325 MG PO (16:11)
[2017-02-13] MEDS ORDERED: LASIX PO (16:11)
[2017-02-13] MEDS ORDERED: IMDUR PO (16:12)
[2017-02-13] MEDS ORDERED: PRO-AMATINE5 M1 PO (16:12)
[2017-02-13] MEDS ORDERED: REQUIP1 MG PO (16:12)
[2017-02-13 16:23] LABS: URINE APPEARANCE CLEAR; URINE BILIRUBIN NEG (NEG); URINE BLOOD 1+ (NEG); URINE COLOR YELLOW; URINE GLUCOSE 100 MG/DL (NEG); URINE KETONE NEG (NEG); URINE LEUKOCYTE ESTERASE TRACE (NEG); URINE NITRATE NEG (NEG); URINE PROTEIN 2+ (NEG); URINE SPECIFIC GRAVITY 1.014 (1.003-1.035); URINE UROBILINOGEN 0.2 MG/DL (NEG)
[2017-02-13 16:26] LABS: URINE BACTERIA AUWI NEG (NEGATIVE); URINE SQUAMOUS EPITHELIAL CELL NONE SEEN /[HPF]
[2017-02-13 16:30] LABS: CULTURE INDICATED? NO
[2017-02-13 16:35] LABS: POC - CKMB 2.9 ng/mL (0.0-7.9); POC - TROPONIN <0.05 ng/mL (<=0.05)
[2017-02-13 17:58] LABS: MAGNESIUM 2.5 mg/dL (1.6-3.0); PHOSPHOROUS 5.8 mg/dL (2.5-4.6)
[2017-02-13 18:16] LABS: FOLATE (FOLIC ACID) 19.3 ng/mL (>5.8)
[2017-02-13 18:17] LABS: %MB 4.3 % (0.0-4.0); MB 5.3 ng/ml
[2017-02-14 00:18] LABS: %MB 4.5 % (0.0-4.0)
[2017-02-16 07:46] LABS: HEMATOCRIT 28.4 % (38.0-50.0); HEMOGLOBIN 9.7 gm/dL (13.0-16.0); MEAN CELL VOLUME 98.9 FL (83-96); MEAN CORPUSCULAR HEMOGLOBIN 33.8 PG (28-34); MEAN CORPUSCULAR HGB CONC 34.2 g/dL (30-36); MEAN PLATELET VOLUME 7.4 FL (6.5-11.5); RED BLOOD COUNT 2.88 X10e (3.90-5.60); WHITE BLOOD COUNT 5.6 X10e3 (4.0-10.5)
[2017-02-16 08:07] LABS: BUN/CREATININE RATIO 4.84; CALCIUM SERUM 8.7 mg/dL (8.4-10.2); CREATININE SERUM 3.3 mg/dL (0.6-1.4); POTASSIUM 4.2 mmol/L (3.5-5.1)
[2017-02-20 05:28] LABS: HEMATOCRIT 31.5 % (38.0-50.0); HEMOGLOBIN 10.9 gm/dL (13.0-16.0); MEAN CELL VOLUME 99.1 FL (83-96); MEAN CORPUSCULAR HEMOGLOBIN 34.4 PG (28-34); MEAN CORPUSCULAR HGB CONC 34.7 g/dL (30-36); MEAN PLATELET VOLUME 7.5 FL (6.5-11.5); RED BLOOD COUNT 3.18 X10e (3.90-5.60); RED CELL DISTRIBUTION WIDTH 14.9 % (11.0-15.5); WHITE BLOOD COUNT 6.3 X10e3 (4.0-10.5)
[2017-02-21 05:54] LABS: HEMATOCRIT 31.1 % (38.0-50.0); HEMOGLOBIN 10.4 gm/dL (13.0-16.0); MEAN CELL VOLUME 99.5 FL (83-96); MEAN CORPUSCULAR HEMOGLOBIN 33.4 PG (28-34); MEAN CORPUSCULAR HGB CONC 33.5 g/dL (30-36); MEAN PLATELET VOLUME 7.6 FL (6.5-11.5); RED BLOOD COUNT 3.12 X10e (3.90-5.60); RED CELL DISTRIBUTION WIDTH 15.1 % (11.0-15.5); WHITE BLOOD COUNT 6.8 X10e3 (4.0-10.5)
[2017-02-21 06:26] LABS: BUN/CREATININE RATIO 4.74; CALCIUM SERUM 8.9 mg/dL (8.4-10.2); CREATININE SERUM 5.9 mg/dL (0.6-1.4); GLOM FILT RATE Estimated 7.9 mL/min (>60); POTASSIUM 3.6 mmol/L (3.5-5.1)
[2017-02-24 06:29] LABS: HEMATOCRIT 30.4 % (38.0-50.0); HEMOGLOBIN 10.3 gm/dL (13.0-16.0); MEAN CELL VOLUME 100.4 FL (83-96); MEAN CORPUSCULAR HGB CONC 33.8 g/dL (30-36); MEAN PLATELET VOLUME 7.9 FL (6.5-11.5); RED BLOOD COUNT 3.02 X10e (3.90-5.60); WHITE BLOOD COUNT 5.1 X10e3 (4.0-10.5)
[2017-02-24 08:03] LABS: BUN/CREATININE RATIO 4.24; CALCIUM SERUM 8.5 mg/dL (8.4-10.2); CREATININE SERUM 3.3 mg/dL (0.6-1.4); POTASSIUM 3.8 mmol/L (3.5-5.1)
[2017-02-26 06:20] LABS: HEMATOCRIT 28.9 % (38.0-50.0); HEMOGLOBIN 9.6 gm/dL (13.0-16.0); MEAN CELL VOLUME 100.3 FL (83-96); MEAN CORPUSCULAR HEMOGLOBIN 33.4 PG (28-34); MEAN CORPUSCULAR HGB CONC 33.3 g/dL (30-36); MEAN PLATELET VOLUME 8.1 FL (6.5-11.5); RED BLOOD COUNT 2.88 X10e (3.90-5.60); RED CELL DISTRIBUTION WIDTH 15.8 % (11.0-15.5); WHITE BLOOD COUNT 4.8 X10e3 (4.0-10.5)
[2017-02-26 06:38] LABS: BUN/CREATININE RATIO 7.41; CALCIUM SERUM 8.5 mg/dL (8.4-10.2); CREATININE SERUM 6.2 mg/dL (0.6-1.4); GLOM FILT RATE Estimated 7.5 mL/min (>60); POTASSIUM 4.3 mmol/L (3.5-5.1)
[2017-02-28 05:28] LABS: HEMATOCRIT 30.2 % (38.0-50.0); HEMOGLOBIN 10.2 gm/dL (13.0-16.0); MEAN CELL VOLUME 100.6 FL (83-96); MEAN CORPUSCULAR HEMOGLOBIN 33.8 PG (28-34); MEAN CORPUSCULAR HGB CONC 33.6 g/dL (30-36); MEAN PLATELET VOLUME 8.4 FL (6.5-11.5); RED BLOOD COUNT 3.01 X10e (3.90-5.60); RED CELL DISTRIBUTION WIDTH 15.7 % (11.0-15.5); WHITE BLOOD COUNT 5.2 X10e3 (4.0-10.5)
[2017-02-28 06:04] LABS: BUN/CREATININE RATIO 8.14; CALCIUM SERUM 8.9 mg/dL (8.4-10.2); CREATININE SERUM 5.4 mg/dL (0.6-1.4); GLOM FILT RATE Estimated 8.8 mL/min (>60); POTASSIUM 4.9 mmol/L (3.5-5.1)
[2017-03-02 08:14] LABS: HEMATOCRIT 30.7 % (38.0-50.0); HEMOGLOBIN 10.5 gm/dL (13.0-16.0); MEAN CELL VOLUME 100.1 FL (83-96); MEAN CORPUSCULAR HEMOGLOBIN 34.1 PG (28-34); MEAN CORPUSCULAR HGB CONC 34.1 g/dL (30-36); MEAN PLATELET VOLUME 7.5 FL (6.5-11.5); RED BLOOD COUNT 3.06 X10e (3.90-5.60); RED CELL DISTRIBUTION WIDTH 16.3 % (11.0-15.5); WHITE BLOOD COUNT 4.6 X10e3 (4.0-10.5)
[2017-03-02 09:14] LABS: BUN/CREATININE RATIO 7.69; CALCIUM SERUM 9.1 mg/dL (8.4-10.2); CREATININE SERUM 5.2 mg/dL (0.6-1.4); GLOM FILT RATE Estimated 9.2 mL/min (>60); POTASSIUM 4.2 mmol/L (3.5-5.1)
[2017-03-03 07:57] LABS: CALCIUM SERUM 8.8 mg/dL (8.4-10.2); POTASSIUM 3.6 mmol/L (3.5-5.1)
[2017-03-05 05:18] LABS: HEMATOCRIT 29.8 % (38.0-50.0); HEMOGLOBIN 10.1 gm/dL (13.0-16.0); MEAN CELL VOLUME 101.4 FL (83-96); MEAN CORPUSCULAR HEMOGLOBIN 34.5 PG (28-34); MEAN PLATELET VOLUME 6.9 FL (6.5-11.5); RED BLOOD COUNT 2.94 X10e (3.90-5.60); RED CELL DISTRIBUTION WIDTH 16.4 % (11.0-15.5)
[2017-03-05 06:38] LABS: BUN/CREATININE RATIO 7.09; CALCIUM SERUM 8.7 mg/dL (8.4-10.2); CREATININE SERUM 5.5 mg/dL (0.6-1.4); GLOM FILT RATE Estimated 8.6 mL/min (>60); POTASSIUM 3.7 mmol/L (3.5-5.1)
[2017-03-06 06:23] LABS: HEMATOCRIT 30.1 % (38.0-50.0); HEMOGLOBIN 10.1 gm/dL (13.0-16.0); MEAN CELL VOLUME 101.5 FL (83-96); MEAN CORPUSCULAR HEMOGLOBIN 34.1 PG (28-34); MEAN CORPUSCULAR HGB CONC 33.5 g/dL (30-36); MEAN PLATELET VOLUME 7.9 FL (6.5-11.5); RED BLOOD COUNT 2.97 X10e (3.90-5.60); WHITE BLOOD COUNT 4.9 X10e3 (4.0-10.5)
[2017-03-06 07:05] LABS: CALCIUM SERUM 8.5 mg/dL (8.4-10.2); POTASSIUM 3.5 mmol/L (3.5-5.1)
[2017-03-07 16:30] LABS: %MB 5.4 % (0.0-4.0); MB 5.1 ng/ml
[2017-03-07 22:16] LABS: %MB 4.6 % (0.0-4.0); MB 5.7 ng/ml
[2017-03-08 05:40] LABS: HEMATOCRIT 30.8 % (38.0-50.0); HEMOGLOBIN 10.3 gm/dL (13.0-16.0); MEAN CELL VOLUME 102.9 FL (83-96); MEAN CORPUSCULAR HEMOGLOBIN 34.5 PG (28-34); MEAN CORPUSCULAR HGB CONC 33.6 g/dL (30-36); MEAN PLATELET VOLUME 7.6 FL (6.5-11.5); RED CELL DISTRIBUTION WIDTH 17.5 % (11.0-15.5); WHITE BLOOD COUNT 4.5 X10e3 (4.0-10.5)
[2017-03-08 07:14] LABS: BUN/CREATININE RATIO 4.44; CALCIUM SERUM 8.4 mg/dL (8.4-10.2); CREATININE SERUM 2.7 mg/dL (0.6-1.4); GLOM FILT RATE Estimated 20.4 mL/min (>60); POTASSIUM 3.3 mmol/L (3.5-5.1)
[2017-03-09 11:20] LABS: BUN/CREATININE RATIO 4.87; CALCIUM SERUM 8.6 mg/dL (8.4-10.2); CREATININE SERUM 4.1 mg/dL (0.6-1.4); GLOM FILT RATE Estimated 12.3 mL/min (>60); POTASSIUM 4.5 mmol/L (3.5-5.1)
== END 2017-03-09 14:30 | disposition home or self-care (01) ==
LOC: CED 12:20 → C5B 16:50 → CEDOF 16:50 → C2A 16:50 → C5B 17:42 → CED 17:42 → CEDOF 17:42 → C5B 18:36 → C2A 02-15 16:59
PROVIDERS: Emergency Medicine; Family Medicine; Internal Medicine Nephrology; Nurse Practitioner Family
DX: I13.2 Hypertensive heart and chronic kidney disease with heart failure and with stage 5 chronic kidney disease, or end stage renal disease (principal); I50.23 Acute on chronic systolic (congestive) heart failure; F03.90 Unspecified dementia, unspecified severity, without behavioral disturbance, psychotic disturbance, mood disturbance, and anxiety; N18.6 End stage renal disease; Z99.2 Dependence on renal dialysis; E78.5 Hyperlipidemia, unspecified; F17.200 Nicotine dependence, unspecified, uncomplicated; I25.10 Atherosclerotic heart disease of native coronary artery without angina pectoris; I48.0 Paroxysmal atrial fibrillation; G47.30 Sleep apnea, unspecified; F32.9 Major depressive disorder, single episode, unspecified; E11.40 Type 2 diabetes mellitus with diabetic neuropathy, unspecified; E11.51 Type 2 diabetes mellitus with diabetic peripheral angiopathy without gangrene; Z79.4 Long term (current) use of insulin; Z79.899 Other long term (current) drug therapy; Z60.9 Problem related to social environment, unspecified; Z85.46 Personal history of malignant neoplasm of prostate; Z88.0 Allergy status to penicillin; Z90.49 Acquired absence of other specified parts of digestive tract; Z95.0 Presence of cardiac pacemaker; Z98.890 Other specified postprocedural states; Z95.5 Presence of coronary angioplasty implant and graft
CPT/HCPCS: 36415; 36430; 71010; 71020; 80048; 80053; 81003; 82274; 82550; 82553; 82607; 82728; 82746; 82947; 83036; 83540; 83550; 83735; 83880; 84100; 84484; 85025; 85027; 87040; 87340; 93005; 93306; 94760; 96372; 96374; 96375; 96376; 97110; 97116; 97162; 97164; 97166; 97530; 97535; 99285; G0378; G8978-GP; G8979-GP; G8987-GO; G8988-GO; G8989-GO; J1644; J1815; J2405; J2501; P9047; Q4081

== ENCOUNTER 2017-03-09 14:31 | Inpatient (IN) | payer OTHER ==
--- NOTE | ~2017-03-09 | HP ---
Unit #: [id number] #: [id number] Patient: SHAHRZAD TOBIN [id number] [address] [address] [id number] I MR#: [id number] NAME: SHAHRZAD TOBIN ROOM: 240 Age: 86 Sex: M Admission Date: 03/08/2017 : 1930 Attending Physician: Burak Crocker M.D. Primary Care Physician: No Primary Care Physician HISTORY AND PHYSICAL DATE OF ADMISSION Date of admission to inpatient scatter bed, March 08, 2017. REASON FOR ADMISSION Comfort care measures. HISTORY OF PRESENT ILLNESS The patient is an 86-year-old male with prior history of end-stage dementia, end-stage renal disease, worsening systolic heart failure, multifactorial dyspnea, who presented originally to [facility] secondary to above. His condition declined. Dyspnea worsened. Medical conditions progressed. Decision was made at that point in time for hospice care. Patient will be admitted now to scatter bed program under routine medications. Hemodialysis will be discontinued. CURRENT CLINICAL DIAGNOSES 1. End-stage systolic heart failure. 2. End-stage renal disease. 3. Dyspnea, multifactorial. 4. End-stage dementia. PLAN Hospice care. Dictated by Sandra Díaz/beatrice TD: 03/10/2017 12:59 JOB #: [id number] Unit #: [id number] #: [id number] Patient: SHAHRZAD TOBIN HISTORY AND PHYSICAL Page 1 of 1 X Burak Crocker MD X HISTORY AND PHYSICAL
[~2017-03-09 14:31] MED LIST: ATORVASTATIN CA10 MG PO; DONEPEZIL HCL10 MG PO; IMDUR PO; IRON325 MG PO; LASIX PO; PRO-AMATINE5 M1 PO; REQUIP1 MG PO
== END 2017-03-14 15:17 | DRG 291 ==
LOC: C2A 14:31
DX: I50.22 Chronic systolic (congestive) heart failure (principal); N18.6 End stage renal disease; F03.90 Unspecified dementia, unspecified severity, without behavioral disturbance, psychotic disturbance, mood disturbance, and anxiety; Z51.5 Encounter for palliative care; Z66 Do not resuscitate
CPT/HCPCS: 94760; J2270; J2405